=== PATIENT | female | born 1950 | race Two or more races ===

== ENCOUNTER 2024-11-01 12:49 | Emergency (ER) | payer MEDICARE, MEDICAID, SELFPAY ==
[2024-11-01 12:50] VITALS: BP 169/104; PULSE 102; RESP 24; TEMP 36.8; O2SAT 99
--- NOTE | 2024-11-01 12:53 | EKG_ITS ---
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
--- NOTE | 2024-11-01 13:02 | PD.EDRME ---
Rapid Medical Screening Exam RME Arrival date/time: 11/01/24 12:49 74-year-old female with no known medical history presents to the emergency room with a chief complaint of shortness of breath, chest pain, and an elevated blood pressure reading. I have greeted and performed a focused initial assessment of this patient. A comprehensive ED assessment and evaluation of the patient, analysis of all test results, and completion of the medical decision making process will be conducted by additional ED providers. Chief Complaint: Chest Pain Vital signs reviewed by provider: Yes
[2024-11-01 13:07] VITALS: PULSE 102
[2024-11-01 13:08] VITALS: BMI 38.6
[2024-11-01] MEDS: MORPHINE SULF INJ 10 MG/ML VIAL 2 MG IVP (13:15)
[2024-11-01] MEDS: ONDANSETRON INJ 2 MG/ML INJ 2 ML 4 MG IVP (13:15)
--- NOTE | 2024-11-01 13:18 | XR_ITS ---
Examination: AP chest single view Technique one AP portable semiupright chest single view Date and time: November 01, 2024 1353 hours, comparison April 02, 2023 INDICATIONS: Shortness of breath chest pain FINDINGS: Mild prominence left ventricle No pneumonia or pulmonary edema The osseous structures are intact IMPRESSION: No active disease
[2024-11-01] MEDS: ASPIRIN EC 81 MG TABEC 243 MG PO (13:20)
[2024-11-01 13:21] VITALS: BP 169/104; PULSE 66
[2024-11-01] MEDS: NITROGLYCERIN 0.4 MG SUBL BTL #25 SL (13:21)
--- NOTE | 2024-11-01 13:24 | PD.EDCHEST ---
ED Chest Pain RME/HPI General Chief Complaint: Chest Pain Stated Complaint: BP 210/100, CHEST PAIN, DIZZY, SOB Time Seen by Provider: 11/01/24 13:08 Arrival date/time: 11/01/24 12:49 RME / HPI RME / HPI narrative: 11/01/24 12:49 74-year-old female with no known medical history presents to the emergency room with a chief complaint of shortness of breath, chest pain, and an elevated blood pressure reading. I have greeted and performed a focused initial assessment of this patient. A comprehensive ED assessment and evaluation of the patient, analysis of all test results, and completion of the medical decision making process will be conducted by additional ED providers. DR. FREGOSO MAIN ED EVALUATION 74 year old female with history of asthma, hypertension, colon CA (in remission), DVT presents to the ED brought in by caregiver for evaluation of elevated blood pressure readings today. Per caregiver, blood pressure at home was 220/110s and consulted with their PCP who advised she take Nitro and one 81mg Aspirin. States while in the ED she developed sharp left-sided chest pain that radiates to her back, rating as severe. Accompanied by feeling short of breath. Denies any fevers, chills, sweats, cough, shortness of breath. Denies abdominal pain, n/v/d, or urinary symptoms. Related Data Home Medications ?Medication ?Instructions ?Recorded ?Confirmed ascorbic acid (vitamin C) 500 mg 1,000 mg PO QDAY 02/13/19 11/27/20 tablet (Vitamin C) cholecalciferol (vitamin D3) 25 1,000 unit PO QDAY 02/13/19 11/27/20 mcg (1,000 unit) chewable tablet (Vitamin D3) aspirin 81 mg tablet,delayed 81 mg PO QDAY 05/05/19 11/27/20 release loratadine 10 mg tablet 10 mg PO QDAY 05/05/19 11/27/20 enalapril maleate 10 mg tablet 10 mg PO QDAY 11/27/20 11/27/20 fluticasone propionate 50 1 spray intranasal QDAY 11/27/20 11/27/20 mcg/actuation nasal spray,suspension montelukast 10 mg tablet 10 mg PO QDAY 11/27/20 11/27/20 nortriptyline 25 mg capsule 25 mg PO QDAY 11/27/20 11/27/20 omeprazole 40 mg capsule,delayed 40 mg PO QDAY 11/27/20 11/27/20 release Previous Rx's ?Medication ?Instructions ?Recorded alprazolam 0.5 mg tablet (Xanax) 0.5 mg PO TID PRN anxiety #14 tabs 11/27/20 dicyclomine 20 mg tablet 20 mg PO QID PRN abdominal pain 09/27/22 #14 tabs ondansetron 4 mg disintegrating 4 mg PO TID PRN nausea and 09/27/22 tablet vomiting #14 tabs prednisolone 5 mg tablet 5 mg PO QAM #5 tabs 04/04/23 alprazolam 0.5 mg tablet (Xanax) 0.5 mg PO BID PRN anxiety #10 tabs 11/01/24 magnesium oxide 400 mg PO BID #60 tabs 11/01/24 Allergies Allergy/AdvReac Type Severity Reaction Status Date / Time ibuprofen Allergy Intermediate Swelling Verified 02/13/19 13:09 tramadol Allergy Intermediate swelling Verified 02/13/19 13:09 acetaminophen (From Tylenol) Allergy Mild Swelling Verified 02/13/19 19:46 of Lip/Tongue/Throat Review of Systems Review of Systems Systems Reviewed: All systems reviewed, normal except as documented Past Medical History Past Medical History NEUROLOGIC: Positive Cerebrovascular Accident CARDIAC: Positive Cardiac Disorders, Angina and Hypertension RESPIRATORY: Positive Asthma GASTROINTESTINAL: Positive Gastrointestinal Disorders and Gastroesophageal Reflux Disease GENITOURINARY: Positive Genitourinary Disorders MUSCULOSKELETAL: Positive Musculoskeletal Disorders and Arthritis ENT: Positive Deafness OTHER HISTORY: Positive Hospitalization, Falls, Chicken Pox, Measles and Mumps Family History FAMILY HISTORY: Positive Family Respiratory Disorders and Family Cardiac Disorders Surgical History SURGICAL: Positive Hysterectomy and Section Social History SMOKING STATUS: Never smoker SECOND HAND EXPOSURE: No SUBSTANCE USE: does not use ED Exam Narrative Physical exam: GENERAL APPEARANCE: alert and oriented x 4, well-developed, well-nourished, appears anxious and tearful HEENT: Normocephalic, atraumatic; pupils equal, round, reactive to light; EOMI; mucous membranes pink, moist; oropharynx clear NECK: Supple LUNGS: CTABL; no wheezes, no rales, no rhonchi HEART: Regular rate, regular rhythm; normal S1, S2; no murmurs ABDOMEN: non distended; normal BS; soft, no tenderness, no guarding, no rebound; no masses, no organomegaly, no hernia BACK: no CVA tenderness EXTREMITIES: atraumatic; no edema NEUROLOGIC: awake; alert and oriented x4; cranial nerves II-XII grossly intact PSYCHIATRIC: Anxious and tearful SKIN: warm, dry, normal color; no rashes Course Course Course Narrative: 1800: Care signed out to Dr. Stapleton. Results and treatment plan discussed. They will assume the care of the patient at this time, pending delta trop and final disposition. Quality Measures none Orders Category Date Time Status Machine Stemmer NOW Care 11/01/24 13:07 Completed EKG (ED ONLY) *Do not use* NOW Care 11/01/24 12:53 Completed Insert IV NOW Care 11/01/24 13:08 Completed EKG (ED Only) Stat Exams 11/01/24 12:53 Draft XR chest 1V portable Stat Exams 11/01/24 13:18 Completed B-Type Natriuretic Peptide Stat Lab 11/01/24 13:00 Completed CBC Stat Lab 11/01/24 13:00 Completed Comprehensive Metabolic Panel Stat Lab 11/01/24 13:00 Completed Lipase Stat Lab 11/01/24 13:00 Completed Magnesium Stat Lab 11/01/24 13:00 Completed Partial Thromboplastin Time Stat Lab 11/01/24 13:00 Completed Prothrombin Time with INR Stat Lab 11/01/24 13:00 Completed Troponin I Stat Lab 11/01/24 13:00 Completed Troponin I Stat Lab 11/01/24 18:00 Completed Urinalysis Stat Lab 11/01/24 18:34 Completed Aspirin [Ecotrin] Med 11/01/24 13:05 Discontinued 243 mg PO X1 ONE Diazepam Inj [Valium Inj] Med 11/01/24 18:38 Discontinued 5 mg IVP X1 ONE Magnesium Oxide [Mag-Ox 400] Med 11/01/24 15:19 Discontinued 400 mg PO X1 ONE Magnesium Sulfate 1 gm Ivpb [Magnesium Sulfate Ivpb] Med 11/01/24 18:34 Discontinued 1 gm in 100 ml IV X1 Meclizine HCl [Antivert] Med 11/01/24 15:22 Discontinued 25 mg PO X1 ONE Morphine Inj Med 11/01/24 13:05 Discontinued 2 mg IVP X1 ONE Nitroglycerin [Nitrostat 1/150] Med 11/01/24 13:05 Discontinued 0.4 mg SL X1 ONE Ondansetron Inj [Zofran Inj] Med 11/01/24 13:05 Discontinued 4 mg IVP X1 ONE Vital Signs Vital signs: Vital Signs Temperature 98.2 F 11/01/24 12:50 Pulse Rate 102 H 11/01/24 12:50 Respiratory Rate 24 H 11/01/24 12:50 Blood Pressure 169/104 H 11/01/24 12:50 Pulse Oximetry (%) 99 11/01/24 12:50 Oxygen Delivery Method Room Air 11/01/24 12:50 Pulse ox is 99% on room air which is adequate. Chest Pain MDM Narrative MDM Narrative:: Chantale De Paz am scribing for and in the presence of Dr. Fregoso. 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 NSR, rate 63, no acute ischemic changes ) Lab and/or radiology exams considered but not ordered:: None Interpretation Summary: Ordering Physician: Ariadna Fregoso MD Date of Service: 11/01/24 Procedure(s): XR chest 1V portable Accession Number(s): [id number] cc: Stanton Palmer MD; Satya Brower MD; Ariadna Fregoso MD~ Examination: AP chest single view Technique one AP portable semiupright chest single view Date and time: November 01, 2024 1353 hours, comparison April 02, 2023 INDICATIONS: Shortness of breath chest pain FINDINGS: Mild prominence left ventricle No pneumonia or pulmonary edema The osseous structures are intact IMPRESSION: No active disease Dictated By: Satya Brower MD Signed By: <Electronically signed by Satya Brower MD in OV> 11/01/24 1402 Medications / Prescriptions Medications or Prescriptions considered but not ordered:: None Medication administrations:: Medication Administration History Discontinued Medications Aspirin (Aspirin Ec 81 Mg Tabec) 243 mg PO X1 ONE Stop: 11/01/24 13:06 Last Admin: 11/01/24 13:20 Dose: 243 mg Documented By: EUGENIO Diazepam (Diazepam Inj 5 Mg/Ml Vial 2 Ml) 5 mg IVP X1 ONE Stop: 11/01/24 18:39 Last Admin: 11/01/24 18:47 Dose: 5 mg Documented By: EUGENIO Magnesium Sulfate/Dextrose (Magnesium Sulfate Ivpb) 1 gm in 100 mls @ 100 mls/hr IV X1 ONE Stop: 11/01/24 19:33 Last Infusion: 11/01/24 19:51 Dose: Infused Documented By: Admin: 11/01/24 18:51 Dose: 100 mls/hr Documented By: EUGENIO Magnesium Oxide (Magnesium Oxide 400 Mg Tablet) 400 mg PO X1 ONE Stop: 11/01/24 15:20 Last Admin: 11/01/24 15:50 Dose: 400 mg Documented By: EUGENIO Meclizine HCl (Meclizine Hcl 25 Mg Tablet) 25 mg PO X1 ONE Stop: 11/01/24 15:23 Last Admin: 11/01/24 15:49 Dose: 25 mg Documented By: EUGENIO Morphine Sulfate (Morphine Sulf Inj 10 Mg/Ml Vial) 2 mg IVP X1 ONE Stop: 11/01/24 13:06 Last Admin: 11/01/24 13:15 Dose: 2 mg Documented By: EUGENIO Nitroglycerin (Nitroglycerin 0.4 Mg Subl Btl #25) 0.4 mg SL X1 ONE Stop: 11/01/24 13:06 Last Admin: 11/01/24 13:21 Dose: 0.4 mg Documented By: EUGENIO Ondansetron HCl (Ondansetron Inj 2 Mg/Ml Inj 2 Ml) 4 mg IVP X1 ONE; Protocol Stop: 11/01/24 13:06 Last Admin: 11/01/24 13:15 Dose: 4 mg Documented By: EUGENIO See above Consultations Consultation(s) initiated? (list below): No Diagnosis Most likely diagnosis given after review of the tests above:: Chest pain Admission Indicated Admission indicated?: not indicated Explain why admission is indicated or not indicated:: Signed out pending final disposition Admission Request Was there a request for admission?: No Disposition Plan Disposition Plan: other (specify) (Signed out to Dr. Stapleton) Discharge Plan Plan Patient Disposition: HOME (Self Care) Prescriptions/Referrals Prescriptions/Med Rec: New alprazolam [Xanax] 0.5 mg tablet 0.5 mg PO BID PRN (Reason: anxiety) Qty: 10 0RF magnesium oxide 400 mg magnesium tablet 400 mg PO BID Qty: 60 0RF No Action ascorbic acid (vitamin C) [Vitamin C] 500 mg Tablet 1,000 mg PO QDAY cholecalciferol (vitamin D3) [Vitamin D3] 1,000 unit Tablet,Chewable 1,000 unit PO QDAY enalapril maleate 10 mg tablet 10 mg PO QDAY Patient Comments: TOME MELVIN TABLETA TODOS LOS D omeprazole 40 mg capsule,delayed release(DR/EC) 40 mg PO QDAY Patient Comments: TOME 1 C PSULA POR V A ORAL TODOS LOS D nortriptyline 25 mg capsule 25 mg PO QDAY Patient Comments: TOME MELVIN C PSULA TODOS LOS D montelukast 10 mg tablet 10 mg PO QDAY Patient Comments: TOME MELVIN TABLETA TODOS LOS D fluticasone propionate 50 mcg/actuation spray,suspension 1 spray INTRANASAL QDAY Patient Comments: USE 1 SPRAY IN EACH NOSTRIL ONCE A DAY alprazolam [Xanax] 0.5 mg tablet 0.5 mg PO TID PRN (Reason: anxiety) Qty: 14 0RF aspirin 81 mg tablet,delayed release (DR/EC) 81 mg PO QDAY Patient Comments: TOME MELVIN TABLETA POR V?A ORAL TODOS LOS D? loratadine 10 mg tablet 10 mg PO QDAY Patient Comments: TOME MELVIN TABLETA TODOS LOS D? dicyclomine 20 mg tablet 20 mg PO QID PRN (Reason: abdominal pain) Qty: 14 0RF ondansetron 4 mg tablet,disintegrating 4 mg PO TID PRN (Reason: nausea and vomiting) Qty: 14 0RF prednisolone 5 mg tablet 5 mg PO QAM Qty: 5 0RF Referrals: Stanton Palmer MD [Primary Care Provider] - In 1 week Problem List Clinical Impression: Chest pain Patient/Caregiver Discharge Instructions Print Language: Frisian
[2024-11-01 13:59] LABS: Basophils # (Auto) 0.0 Thou/mm3 (0.0-0.2); Basophils % (Auto) 1 % (0-2.5); Eosinophils # (Auto) 0.4 Thou/mm3 (0.0-0.5); Eosinophils % (Auto) 5 % (0-10); Hematocrit 38.4 % (36.0-46.0); Hemoglobin 12.2 g/dL (12.0-16.0); Immature Granulocytes Auto 0.02 Thou/mm3 (0.00-0.00); Lymphocytes # (Auto) 2.2 Thou/mm3 (1.0-4.8); Lymphocytes % (Auto) 28 % (10-50); Mean Corpuscular HGB Conc 31.8 g/dl (31.0-37.0); Mean Corpuscular Hemoglobin 25.4 pg (25.0-35.0); Mean Corpuscular Volume 80 fL (80-100); Monocytes # (Auto) 0.8 Thou/mm3 (0.0-0.8); Monocytes % (Auto) 10 % (0-12); Neutrophils # (Auto) 4.5 Thou/mm3 (1.8-7.7); Neutrophils % (Auto) 56 % (37-80); Nucleated Red Blood Cell # 0.00 Thou/mm3 (0.00-0.00); Nucleated Red Blood Cell % 0 /100 WBC (0); Platelet Count 189 Thou/mm3 (140-440); RDW Standard Deviation 43.8 fL (36.4-46.3); Red Blood Count 4.80 Miln/mm3 (4.00-5.20); White Blood Count 8.0 Thou/mm3 (3.6-11.0)
[2024-11-01 14:22] LABS: Alanine Aminotransferase 26 U/L (10-49); Albumin, Serum 4.4 gm/dL (3.4-4.8); Albumin/Globulin Ratio 1.8 (1.2-2.2); Alkaline Phosphatase 80 U/L (46-116); Anion Gap 14 (7-16); Aspartate Amino Transferase 32 U/L (0-34); BUN/Creatinine Ratio 14 Ratio (12-20); Bilirubin,Total 0.3 mg/dL (0.3-1.2); Blood Urea Nitrogen 11 mg/dL (9-23); Calcium 9.9 mg/dL (8.3-10.6); Calcium (Corrected) 9.9 mg/dL (8.5-10.1); Carbon Dioxide 24.5 mMol/L (20.0-31.0); Chloride 104 mMol/L (98-107); Creatinine (Component) 0.8 mg/dL (0.6-1.3); Estimated Creatinine Clearance 76.6 mL/min (>60); Globulin 2.4 gm/dL (2.3-3.5); Glucose 89 mg/dL (74-106); Lipase 38 U/L (12-53); Magnesium 1.5 mg/dL (1.6-2.6); Osmolality,Calculated 281 (275-295); Potassium 4.6 mMol/L (3.4-5.1); Sodium 142 mMol/L (136-145); Total Protein 6.8 gm/dL (5.7-8.2); Troponin I < 0.002 ng/mL (0.0-0.045); eGFR > 60 See Note
[2024-11-01 14:41] LABS: INR 1.0 (0.9-1.3); Partial Thromboplastin Time 27.9 Seconds (22.0-36.0); Prothrombin Time 10.7 Seconds (9.0-12.2)
[2024-11-01 14:59] LABS: B-Type Natriuretic Peptide 84 pg/mL (0-100)
[2024-11-01] MEDS: MECLIZINE HCL 25 MG TABLET PO (15:49)
[2024-11-01] MEDS: MAGNESIUM OXIDE 400 MG TABLET PO (15:50)
[2024-11-01 16:17] VITALS: BP 144/70; PULSE 59; RESP 15; TEMP 36.8; O2SAT 97
[2024-11-01 18:06] VITALS: BP 169/74; PULSE 60; RESP 15; TEMP 36.8; O2SAT 96
--- NOTE | 2024-11-01 18:09 | EDNOTE_ITS ---
Emergency Room Addendum <Maria Antonia Palmer - Last Filed: 11/01/24 19:24> Addendum Narrative: I took over the care from previous shift physician, Dr. Fregoso, at 6 PM on 11/01/24. See previous notes for complete H & P and ED course. I reviewed all diagnostic test results. Blood tests are unremarkable Diagnoses include: Treatment here included Joey Stapleton MD <Joey Stapleton MD - Last Filed: 11/01/24 19:35> Addendum Narrative: I took over the care from previous shift physician, Dr. Fregoso, at 6 PM on 11/01/24. See previous notes for complete H & P and ED course. I reviewed all diagnostic test results. Diagnoses include: Chest pain due to anxiety Hypomagnesemia Treatment here included ASA, diazepam, magnesium, meclizine, morphine, topical NTG, and Zofran. Significant improvement noted after diazepam. Recommended more outpatient cardiac workup. Discharge instructions from Dr. Stapleton: 1. After extensive evaluation, there is no life-threatening condition.? Such as heart attack or pneumothorax (collapsed lung). 2. Your symptoms may be due to underlying stress or anxiety or nerves.? This is fairly common. Take Xanax as needed.? Whether this helps or not will be valuable information to your private doctors. 3. Take magnesium pills as prescribed. Your magnesium level was very low. 4. See a private doctor on for recheck. Ask to review all test results and official radiology reports, to make sure you receive all necessary follow-ups and monitoring. To make sure there is no serious underlying heart condition, ask to help you get more tests for your heart that cannot be done here in the ER.? Such as Holter Monitor (cardiac monitoring at home from a day to even a month), heart stress test (on treadmill or with medication), echocardiogram (imaging of your heart structures), heart catherization (checking for blockages in your heart arteries), and a referral to see a Cloth Hand. 5. Seek immediate medical care with worsening or with any concerns.?? Instrucciones de jd del Dr. Stapleton: 1. Tras zeke evaluaci?n exhaustiva, no se observa ninguna afecci?n que ponga en peligro la joe, gopal un infarto o un neumot?rax (colapso pulmonar). 2. Suresh s?ntomas pueden deberse a estr?s, ansiedad o nerviosismo subyacentes. [place] es bastante com?n. [place] Xanax seg?n sea necesario. Si esto ayuda o no, ser? zeke informaci?n valiosa para suresh m?dicos. 3. [place] las pastillas de magnesio seg?n lo prescrito. Domínguez nivel de magnesio estaba muy bajo. 4. Consulte con un m?dico el 11/22/24 para zeke nueva revisi?n. Solicite la revisi?n de todos los resultados de las pruebas y los informes radiol?gicos oficiales para asegurarse de recibir todos los seguimientos y la monitorizaci?n necesarios. Para asegurarse de que no haya zeke afecci?n card?hari subyacente grave, solicite ayuda para realizar m?s pruebas card?acas que no se pueden realizar en urgencias. Gopal un monitor Holter (monitoreo card?aco en casa que puede durar desde un d?a hasta un mes), zeke prueba de esfuerzo card?aco (en cinta o con medicaci?n), un ecocardiograma (im?genes de las estructuras del coraz?n), un cateterismo card?aco (para detectar obstrucciones en las arterias del coraz?n) y zeke derivaci?n a un cardi?logo. 5. Busque atenci?n m?dica inmediata si domínguez condici?n empeora o tiene alguna inquietud. Joey Stapleton MD
[2024-11-01 18:28] LABS: Troponin I < 0.020 ng/mL (0.0-0.045)
[2024-11-01 18:46] LABS: Collection Type, Urine Clean Catch
[2024-11-01] MEDS: DIAZEPAM INJ 5 MG/ML VIAL 2 ML IVP (18:47)
[2024-11-01 18:57] LABS: Bilirubin,Urine Negative (Negative); Blood,Urine Negative (Negative); Clarity,Urine Clear (Clear/Hazy); Color,Urine Colorless (Lt Yel-Yel); Glucose, Urine Negative (Negative); Ketones,Urine Negative (Negative); Leukocyte Esterase,Urine Negative (Negative); Nitrite,Urine Negative (Negative); PH,Urine 7.5 (5.0-7.0); Protein,Urine Negative (Neg - Trace); RBC,Urine 1 /hpf (0-3); Specific Gravity,Urine 1.009 (1.001-1.035); Squamous Epithelial Cell,Urine 1 /hpf (0-5); Urobilinogen,Urine Negative mg/dL (0.0-1.0); WBC,Urine 2 /hpf (0-5)
[2024-11-01 19:25] VITALS: BP 134/62; PULSE 60; RESP 20; O2SAT 98
== END 2024-11-01 20:20 | disposition home or self-care (01) ==
PROVIDERS: Emergency Medicine; Nurse Practitioner Family; Emergency Provider Emergency Medicine; PCP Family Medicine
DX: R07.89 Other chest pain (principal); R06.02 Shortness of breath; F41.9 Anxiety disorder, unspecified; E83.42 Hypomagnesemia
CPT/HCPCS: 36415; 71045; 80053; 81001; 83690; 83735; 83880; 84484; 85025; 85610; 85730; 93005; 96365; 96374; 96375; 99284; J2270; J2405; J3360; J3475; A9270